=== PATIENT | female | born 1990 | race Caucasian/White ===

== ENCOUNTER 2020-06-28 13:57 | Emergency (ER) | payer OTHER ==
[~2020-06-28] VITALS: Ht 162.6 cm; Wt 88.6 kg
[2020-06-28 14:08] VITALS: BP 115/70
[2020-06-28] MEDS ORDERED: KETOROLAC 60 MG/2 ML VIAL IM ONE (14:30)
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
--- NOTE | 2020-06-28 14:52 | NUR ---
PT REFUSED TORADOL, STATES JUST WANTS SCAN OF THE HEAD SUGGESTED BY URGENT CARE DOCTOR IF PAIN DOES NOT SUBSIDE.
--- NOTE | 2020-06-28 15:01 | NUR ---
XRAY AT BEDSIDE
--- NOTE | 2020-06-28 15:17 | NUR ---
PT XRAY VIA W/C
--- NOTE | 2020-06-28 15:26 | NUR ---
Patient returned from x-ray.
--- NOTE | 2020-06-28 16:33 | NUR ---
CALLED CT SCAN TO COME GET PATIENT.
[2020-06-28 17:02] VITALS: BP 106/70
--- NOTE | 2020-06-28 17:02 | NUR ---
Patient discharged with v/s stable. Written and verbal after care instructions given and explained. Patient alert, oriented and verbalized understanding of instructions. Ambulatory with steady gait. All questions addressed prior to discharge. ID band removed. Patient advised to follow up with PMD. Rx of IBUPROFEN,FLEXERIL given. Patient educated on indication of medication including possible reaction and side effects. Opportunity to ask questions provided and answered.
== END 2020-06-28 17:02 | disposition home or self-care (01) ==
LOC: MED 13:57
DX: S16.1XXA Strain of muscle, fascia and tendon at neck level, initial encounter (principal); R51 Headache; Z88.5 Allergy status to narcotic agent; Z98.890 Other specified postprocedural states; V49.9XXA Car occupant (driver) (passenger) injured in unspecified traffic accident, initial encounter; Y93.89 Activity, other specified; Y92.89 Other specified places as the place of occurrence of the external cause; Y99.8 Other external cause status
CPT/HCPCS: 70450; 72040; 81025; 99284; J1885